=== PATIENT | female | born 1960 | race Caucasian/White ===

== ENCOUNTER 2019-09-22 16:10 | Emergency (ER) | payer BC, MEDICARE ==
[2019-09-22] MEDS ORDERED: Ketorolac 60 MG/2 ML SDV IM ONE (16:29)
[2019-09-22] MEDS ORDERED: Methocarbamol 500 MG Tab PO ONE (16:29)
--- NOTE | 2019-09-22 16:37 | EDM.PDOC ---
ED HPI GENERAL MEDICAL PROBLEM - General Chief Complaint: Lower Extremity Injury/Pain Stated Complaint: HIP AND LEG PAIN Time Seen by Provider: 09/22/19 16:16 Source of Information: Reports: Patient History Limitations: Reports: No Limitations - History of Present Illness INITIAL COMMENTS - FREE TEXT/NARRATIVE: Allison Martinez is a 58-year-old female who presents emergency room chief complaints of right hip and leg pain. She reports that she has had lower back pain started on Monday after trying to get out of her car. She reports that the pain radiated into her right hip and down her right leg. She denies any incontinence of bowel or bladder. Patient does have a history of lower back and fusion. She reports that she is taking [id number] medication does have little to no relief. She does state that when she flexes her leg up to her abdomen that she does get some relief. Is any fever, chills, chest pain shortness of breath or other symptoms. 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, Cold Therapy, Heat Therapy, NSAIDS - Related Data Home Meds: Home Meds Cyclobenzaprine [Flexeril] 10 mg PO TID PRN #20 tab 09/22/19 [Rx] Ibuprofen 800 mg PO Q8HR PRN #60 tablet 09/22/19 [Rx] predniSONE 40 mg PO WITHBREAKFAST #5 tab 09/22/19 [Rx] Past Medical History HEENT History: Reports: Impaired Vision Other HEENT History: wears glasses 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: Musculoskeletal History: Reports: Back Pain, Chronic - Past Surgical History HEENT Surgical History: Reports: Adenoidectomy, Tonsillectomy Female Surgical History: Reports: Hysterectomy Social & Family History - Family History Family Medical History: Noncontributory - Tobacco Use Smoking Status *Q: Never Smoker Second Hand Smoke Exposure: No - Caffeine Use Caffeine Use: Reports: Coffee - Recreational Drug Use Recreational Drug Use: No Review of Systems - Review of Systems Review Of Systems: See Below Constitutional: Denies: Chills Respiratory: Reports: No Symptoms Cardiovascular: Reports: No Symptoms GI/Abdominal: Reports: No Symptoms Musculoskeletal: Reports: Back Pain, Other (Right hip and right lower leg pain) Skin: Reports: No Symptoms Neurological: Reports: No Symptoms Psychiatric: Reports: No Symptoms ED EXAM, GENERAL - Physical Exam Exam: See Below Exam Limited By: No Limitations General Appearance: Alert, WD/WN, No Apparent Distress Respiratory/Chest: No Respiratory Distress, Lungs Clear, Normal Breath Sounds, No Accessory Muscle Use, Chest Non-Tender Cardiovascular: Normal Peripheral Pulses, Regular Rate, Rhythm, No Edema, No Gallop, No JVD, No Murmur, No Rub GI/Abdominal: Normal Bowel Sounds, Soft, Non-Tender Back Exam: Normal Inspection, Full Range of Motion, Other (Patient has full range of motion. Patient is able to bend, stoop, twist and dorsiflex her toes. Her skin is intact with normal temperature and sensation. Positive right straight leg test at 35*. ) Neurological: Alert, Oriented, CN II-XII Intact, Normal Cognition, Normal Gait, Normal Reflexes, No Motor/Sensory Deficits Psychiatric: Normal Affect, Normal Mood Skin Exam: Warm, Dry, Intact, Normal Color, No Rash Lymphatic: No Adenopathy Course - Vital Signs Text/Narrative:: Allison Martinez is a 58-year-old female who presents the emergency room with chief complaints of 2-day history of right hip and lower leg pain. Patient denies any injury. Patient does have a history of back fusions. Patient denies any incontinence of bowel or bladder. I do not feel the patient needs x-rays at this time. I will medicate with Toradol and Robaxin. She does have a positive right leg raise test at 35 degrees. Last Recorded V/S: Last Vital Signs Temp 97.5 F 09/22/19 16:18 Pulse 94 09/22/19 16:18 Resp 20 09/22/19 16:18 BP 145/85 H 09/22/19 16:18 Pulse Ox 97 09/22/19 16:18 - Orders/Labs/Meds Meds: Medications Discontinued Medications Generic Name Dose Route Start Last Admin Trade Name Freq PRN Reason Stop Dose Admin Hydrocodone Bitart/Acetaminophen 1 tab 09/22/19 17:20 09/22/19 17:32 [place] 325-5 Mg PO 09/22/19 17:21 1 tab ONETIME ONE Administration Ketorolac Tromethamine 60 mg 09/22/19 16:29 09/22/19 17:27 Toradol IM 09/22/19 16:30 60 mg ONETIME ONE Administration Methocarbamol 500 mg 09/22/19 16:29 09/22/19 17:36 Robaxin PO 09/22/19 16:30 500 mg ONETIME ONE Administration - Re-Assessments/Exams Free Text/Narrative Re-Assessment/Exam: 09/22/19 17:10 patient is lying on stretcher crying in pain. I will medicate with [place] 5 mg PO. 09/22/19 18:04 resting comfortably on stretcher reports that she is feeling better. I will discharge home with Flexeril for muscle spasms, course of steroids, and ibuprofen for pain. Instructed the patient on stretching exercises. Patient to alternate ice and heat. Instructed patient to follow with the PCP. Instructed patient to return to the emergency room for any new acute worsening symptoms. Patient verbalized understanding this, plan for discharge. Departure - Departure Time of Disposition: 18:05 Disposition: Home, Self-Care 01 Condition: Good Clinical Impression: Sciatica Qualifiers: Laterality: right Qualified Code(s): M54.31 - Sciatica, right side - Discharge Information Prescriptions: Ibuprofen 800 mg PO Q8HR PRN #60 tablet PRN Reason: Pain Cyclobenzaprine [Flexeril] 10 mg PO TID PRN #20 tab PRN Reason: muscle spasms predniSONE 40 mg PO WITHBREAKFAST #5 tab Instructions: Sciatica, [id number] Referrals: Monica Lopez, ICT TRAINER [Primary Care Provider] - Forms: ED Department Discharge Additional Instructions: Seen and evaluated today for right hip pain that radiated into your right leg. You were diagnosed with sciatica. I recommend you do some stretching exercises. Alternate ice and heat no more than 20 minutes at a time. You have been prescribed ibuprofen for pain. You have been prescribed prednisone which is a steroid take this in the morning with food. You have been prescribed Flexeril for muscle spasm. Do not take this medication and drink, drive or operate machinery. Follow-up with your PCP. Return to the emergency room for any new or acute worsening symptoms. Sepsis Event Note - Evaluation Sepsis Screening Result: No Definite Risk - Focused Exam Vital Signs: Vital Signs Temp Pulse Resp BP Pulse Ox 09/22/19 16:18 97.5 F 94 20 145/85 H 97 Date Exam was Performed: 09/22/19 Time Exam was Performed: 18:04
[2019-09-22] MEDS ORDERED: Acetaminophen/HYDROcodone 325-5 MG Tab PO ONE (17:20)
== END 2019-09-22 18:25 | disposition home or self-care (01) ==
LOC: JD.ED 16:10
DX: M54.41 Lumbago with sciatica, right side (principal); Z79.899 Other long term (current) drug therapy
CPT/HCPCS: 96372; 99283; A9270; J1885